=== PATIENT | male | born 1985 | race Caucasian/White ===

== ENCOUNTER 2016-10-29 15:36 | Emergency (ER) | payer BC ==
[~2016-10-29 15:36] MED LIST: ALPR2TAB2 PO; OXYC30TA PO
[2016-10-29 15:40] VITALS: BP 126/78
[2016-10-29] MEDS ORDERED: AMOX1TAB61 PO (16:38)
--- NOTE | 2016-10-29 16:39 | PHYS DOC ---
Past History Past Medical History: Anxiety Past Surgical History: No Surgical History Smoking: Cigarettes Alcohol Use: Occasionally Drug Use: Marijuana Adult General Chief Complaint Chief Complaint: LACERATION/AVULSION HPI HPI Patient is a 30 year old M who presents with an accidental laceration to his wrist. 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 No other injuries or symptoms. He has full use of his hands and his bleeding is controlled Review of Systems Review of Systems Constitutional: Denies fever or chills [] Eyes: Denies change in visual acuity, redness, or eye pain [] HENT: Denies nasal congestion or sore throat [] Respiratory: Denies cough or shortness of breath [] Cardiovascular: No additional information not addressed in HPI [] GI: Denies abdominal pain, nausea, vomiting, bloody stools or diarrhea [] : Denies dysuria or hematuria [] Musculoskeletal: Denies back pain or joint pain Neg except HPI Integument: Denies rash or skin lesions Neg except HPI Neurologic: Denies headache, focal weakness or sensory changes [] Endocrine: Denies polyuria or polydipsia [] Family History Family History non contributory Current Medications Current Medications none Allergies Allergies Coded Allergies Type Severity Reaction Last Updated Verified carbamazepine Allergy Unknown 02/16/14 No peanut Allergy Unknown 04/28/13 Yes Physical Exam Physical Exam Constitutional: Well developed, well nourished, no acute distress, non-toxic appearance. [] HENT: Normocephalic, atraumatic, Eyes: PERRLA, EOMI, conjunctiva normal, no discharge. [] Neck: Normal range of motion, no tenderness, supple, no stridor. [] Cardiovascular:Heart rate regular rhythm, Lungs & Thorax: Bilateral breath sounds clear to auscultation [] Skin: Warm, dry, no erythema, no rash. [] approximally 5cm transverse laceration on the R wrist. Linear with clean straight lines Extremities: No tenderness, no cyanosis, no clubbing, ROM intact, no edema. [] Neurologic: Alert and oriented X 3, normal motor function, normal sensory function, no focal deficits noted. [] Psychologic: Affect normal, judgement normal, mood normal. [] Current Patient Data Vital Signs Vital Signs Date Time Temp Pulse Resp B/P (MAP) Pulse Ox O2 Delivery O2 Flow Rate FiO2 10/29/16 15:40 98.8 94 22 97 Room Air Radiology/Procedures Radiology/Procedures Indication: laceration Procedure: The patient was placed in the appropriate position. The area was then Cleaned. The laceration was closed using Dermabond as well as 1/2in steri strips. Total repaired wound length: 5cm. The patient tolerated the procedure . Course & Med Decision Making Course & Med Decision Making Pertinent Labs and Imaging studies reviewed. (See chart for details) Dg preferred not to have sutures. He was advised that sutures will have the most strength. He verbalized understanding that if his wound was to reopen it would increase is risk for all complications including infection, bleeding and incomplete healing. Dragon Disclaimer Dragon Disclaimer This chart was dictated in whole or in part using Voice Recognition software in a busy, high-work load, and often noisy Emergency Department environment. It may contain unintended and wholly unrecognized errors or omissions. Departure Departure: Impression: Primary Impression: Laceration Disposition: 01 HOME, SELF-CARE Condition: GUARDED Referrals: MINESH OROURKE (PCP) Patient Instructions: Laceration Care, Adult Additional Instructions: Dg was seen in the ED for a laceration. No emergency medical condition was found during the history and physical exam. His wound was cleaned and repaired. He was already up to date on his Tetanus vaccine. He was started on an antibiotic to prevent infection. He was advised to follow up with his primary care doctor as needed for further management Scripts Amoxicillin/Potassium Clav (AUGMENTIN [id number] TABLET) 1 Each Tablet 1 TAB PO BID for 3 Days, #6 TAB Prov: BERTIN REINOSO MD 10/29/16 BERTIN REINOSO MD Oct 29, 2016 16:38
== END 2016-10-29 16:50 | disposition home or self-care (01) ==
LOC: ER 15:36
DX: S61.511A Laceration without foreign body of right wrist, initial encounter (principal); F41.9 Anxiety disorder, unspecified; F17.210 Nicotine dependence, cigarettes, uncomplicated; F12.10 Cannabis abuse, uncomplicated; Z88.8 Allergy status to other drugs, medicaments and biological substances; Z91.010 Allergy to peanuts; W45.8XXA Other foreign body or object entering through skin, initial encounter; Y93.89 Activity, other specified; Y99.8 Other external cause status; Y92.89 Other specified places as the place of occurrence of the external cause
CPT/HCPCS: 12002; 99282; 99283-25